=== PATIENT | male | born 2000 | race American Indian/Alaskan Native ===

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

== ENCOUNTER 2018-05-07 19:00 | Emergency (ER) | payer OTHER ==
[2018-05-07 19:22] VITALS: BP 105/77
--- NOTE | 2018-05-07 19:23 | Emergency Department Report ---
Blank Doc - Documentation Documentation: 17 y o male presents with middle to right localized chest pain x 2 month worsening cxr ekg wnl
--- NOTE | 2018-05-07 20:19 | XRay Report ---
FINAL REPORT PROCEDURE: XR CHEST ROUTINE 2V TECHNIQUE: PA and lateral chest radiographs were obtained. CPT 08537 HISTORY: Chest Pain COMPARISON: No prior studies are available for comparison. FINDINGS: Heart: Normal. Mediastinum/Vessels: Normal. Lungs/Pleural space: Normal. Bony thorax: No acute osseous abnormality. Other: IMPRESSION: Normal examination.
[2018-05-07 21:21] LABS: BUN/Creatinine Ratio 15; Blood Urea Nitrogen 15 mg/dL (9-20); Calcium 9.6 mg/dL (8.4-10.2); Hemolysis Index 10
[2018-05-07] MEDS ORDERED: IBUPROFEN PO ONE (22:10)
--- NOTE | 2018-05-07 22:12 | Emergency Department Report ---
ED General Adult HPI - General Chief complaint: Chest Pain Stated complaint: CHEST PAIN Time Seen by Provider: 05/07/18 19:21 Source: patient Mode of arrival: Ambulatory Limitations: No Limitations - History of Present Illness Initial comments: 17 year old Afro-[place] male presents to the emergency room for intermittent chest pain over the midsternal and right side for a couple of months. Patient is taking nothing for pain. He reports his every day couple times a day that lasts about 5 minutes and he reports that his ache. Patient reports nothing makes it worse he does admit to smoking and smoking marijuana. Past medical history of herpes. Not currently playing any sports but does do pushups often. -: month(s) (3) Location: chest Radiation: non-radiation Severity scale (0 -10): 5 Quality: aching Consistency: intermittent Improves with: none Worsens with: none Associated Symptoms: denies other symptoms Treatments Prior to Arrival: none - Related Data Previous Rx's Medication Instructions Recorded Last Taken Type Clindamycin [Clindamycin CAP] 300 mg PO Q8H #30 cap 11/21/16 Unknown Rx Ibuprofen [Motrin 600 MG tab] 600 mg PO Q8H PRN #20 tablet 11/21/16 Unknown Rx Mupirocin [Bactroban 2%] 1 applic TP TID #1 tube 11/21/16 Unknown Rx Acyclovir [Zovirax] 400 mg PO TID 5 Days #15 tablet 02/21/18 Unknown Rx Ibuprofen [Motrin 600 MG tab] 600 mg PO Q8H #15 tablet 05/07/18 Unknown Rx Allergies Allergy/AdvReac Type Severity Reaction Status Date / Time shellfish derived Allergy Anaphylaxis Verified 02/21/18 10:45 ED Review of Systems ROS: Stated complaint: CHEST PAIN Other details as noted in HPI Comment: All other systems reviewed and negative Constitutional: denies: chills, fever Cardiovascular: chest pain ED Past Medical Hx - Past Medical History Previous Medical History?: No - Surgical History Past Surgical History?: No - Social History Smoking Status: Current Some Day Smoker Substance Use Type: None - Medications Home Medications: Home Medications Medication Instructions Recorded Confirmed Last Taken Type Clindamycin [Clindamycin CAP] 300 mg PO Q8H #30 cap 11/21/16 Unknown Rx Ibuprofen [Motrin 600 MG tab] 600 mg PO Q8H PRN #20 tablet 11/21/16 Unknown Rx Mupirocin [Bactroban 2%] 1 applic TP TID #1 tube 11/21/16 Unknown Rx Acyclovir [Zovirax] 400 mg PO TID 5 Days #15 tablet 02/21/18 Unknown Rx Ibuprofen [Motrin 600 MG tab] 600 mg PO Q8H #15 tablet 05/07/18 Unknown Rx ED Physical Exam - General Limitations: No Limitations General appearance: alert, in no apparent distress, other (drinking a Coke in exam room) - Head Head exam: Present: atraumatic, normocephalic - Eye Eye exam: Present: normal appearance, EOMI - ENT ENT exam: Present: mucous membranes moist - Respiratory Respiratory exam: Present: normal lung sounds bilaterally, chest wall tenderness. Absent: respiratory distress, wheezes - Cardiovascular Cardiovascular Exam: Present: regular rate, normal rhythm, bradycardia. Absent: systolic murmur, diastolic murmur, rubs, gallop - GI/Abdominal GI/Abdominal exam: Present: soft, normal bowel sounds - Neurological Exam Neurological exam: Present: alert, oriented X3 - Psychiatric Psychiatric exam: Present: normal affect, normal mood - Skin Skin exam: Present: warm, dry, intact, normal color. Absent: rash ED Course Vital Signs 05/07/18 05/07/18 19:20 22:18 Temperature 99.1 F Pulse Rate 62 Respiratory 18 20 Rate Blood Pressure 105/77 O2 Sat by Pulse 98 Oximetry ED Medical Decision Making - Lab Data Result diagrams: 05/07/18 20:23 Laboratory Results - last 72 hr 05/07/18 20:23 Sodium 142 Potassium 4.5 Chloride 101.6 Carbon Dioxide 34 H Anion Gap 11 BUN 15 Creatinine 1.0 Estimated GFR > 60 BUN/Creatinine Ratio 15 Glucose 88 Calcium 9.6 Troponin T < 0.010 - Radiology Data Radiology results: report reviewed Patient: SEAN BENZ MR#: [id number] : 2000 Acct:[id number] Age/Sex: 17 / M ADM Date: 05/07/18 Loc: ED Attending Dr: Ordering Physician: TAINA RAMÍREZ Date of Service: 05/07/18 Procedure(s): XR chest routine 2V Accession Number(s): [id number] cc: TAINA RAMÍREZ Fluoro Time In Minutes: FINAL REPORT PROCEDURE: XR CHEST ROUTINE 2V TECHNIQUE: PA and lateral chest radiographs were obtained. CPT 07125 HISTORY: Chest Pain COMPARISON: No prior studies are available for comparison. FINDINGS: Heart: Normal. Mediastinum/Vessels: Normal. Lungs/Pleural space: Normal. Bony thorax: No acute osseous abnormality. Other: IMPRESSION: Normal examination. Transcribed By: [facility] [place] Dictated By: SHON LAMA Electronically Authenticated By: SHON LAMA Signed Date/Time: 05/07/182018 DD/ 17 TD/TT: 05/07/182017 - Medical Decision Making Patient has been evaluated by this provider in fast track. Ibuprofen given for pain management Chest x-ray is normal examination EKG shows bradycardic otherwise normal Negative troponin 1. Critical care attestation.: If time is entered above; I have spent that time in minutes in the direct care of this critically ill patient, excluding procedure time. ED Disposition Clinical Impression: Tenderness of chest wall Disposition: DC-01 TO HOME OR SELFCARE Is pt being admited?: No Does the pt Need Aspirin: No Condition: Stable Instructions: Chest Pain (ED), Costochondritis (ED) Additional Instructions: Please take pain medication as needed. Please stop smoking cigarettes and marijuana. Please take medication with food. Follow up with her primary care provider Christina bocanegra below. Convenience. Prescriptions: Ibuprofen [Motrin 600 MG tab] 600 mg PO Q8H #15 tablet Referrals: JOSUE WINCHESTER MD [Primary Care Provider] - 3-5 Days Forms: Accompanied Note, Work/School Release Form(ED)
== END 2018-05-08 01:03 | disposition home or self-care (01) ==
LOC: ED 19:00
DX: R07.89 Other chest pain (principal); F17.200 Nicotine dependence, unspecified, uncomplicated; F12.10 Cannabis abuse, uncomplicated; Z91.013 Allergy to seafood
CPT/HCPCS: 36415; 71046; 80048; 84484; 93005; 93010

== ENCOUNTER 2019-04-15 15:02 | Emergency (ER) | payer SELFPAY ==
[2019-04-15] MEDS ORDERED: dexAMETHasone 4 MG/ML VIAL IV ONE (15:03)
[2019-04-15] MEDS ORDERED: EPINEPHrine/PF (1:1,000) 1 MG/1 ML INJ SUB-Q ONE (15:04)
[2019-04-15] MEDS ORDERED: diphenhydrAMINE 50 MG/ML VIAL IV STA (15:05)
[2019-04-15] MEDS ORDERED: FAMOTIDINE 20 MG/2 ML INJ IV ONE ×3 (15:11→15:27)
[2019-04-15] MEDS ORDERED: methylPREDNISolone Sod Succinate 125 MG/2 ML INJ ONE (15:11)
--- NOTE | 2019-04-15 15:12 | Event Note ---
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 This initial assessment/diagnostic orders/clinical plan/treatment(s) is/are subject to change based on patients health status, clinical progression and re- assessment by fellow clinical providers in the ED. Further treatment and workup at subsequent clinical providers discretion. Patient/guardian urged not to elope from the ED as their condition may be serious if not clinically assessed and managed. Initial orders include:
[2019-04-15] MEDS ORDERED: IPRATROPIUM/ALBUTEROL SULFATE 3 ML AMPUL.NEB IH ONE (15:24)
[2019-04-15 15:25] VITALS: BP 134/92
[2019-04-15] MEDS ORDERED: methylPREDNISolone Sod Succinate 125 MG/2 ML INJ IV ONE (15:27)
[2019-04-15] MEDS ORDERED: EPINEPHrine/PF (1:1,000) 1 MG/1 ML INJ IM ONE (15:27)
[2019-04-15] MEDS ORDERED: ALBUTEROL 2.5 MG/3 ML NEBU IH ONE (15:29)
[2019-04-15] MEDS ORDERED: SODIUM CHLORIDE 0.9% 1000 ML 1,000 ML IV ONE (15:29)
--- NOTE | 2019-04-15 15:29 | Emergency Department Report ---
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 Patient brought to the emergency room by his family for sudden onset of generalized body itching, facial swelling and difficulty breathing immediately after he started eating a seafood at home. Patient denied any difficulty in breathing or difficulty swallowing. MD Complaint: allergic reaction, hives, facial swelling -: Sudden, minutes(s) (40) Exposure: food (sea food) Symptoms: itching, facial swelling, lip swelling. denies: difficulty swallowing, difficulty breathing, orolingual swelling, hoarseness, syncopy, nausea Severity: moderate Treatment Prior to Arrival: none Previous Allergy History: prior ED visit(s) - Related Data Previous Rx's Medication Instructions Recorded Last Taken Type Clindamycin [Clindamycin CAP] 300 mg PO Q8H #30 cap 11/21/16 Unknown Rx Ibuprofen [Motrin 600 MG tab] 600 mg PO Q8H PRN #20 tablet 11/21/16 Unknown Rx Mupirocin [Bactroban 2%] 1 applic TP TID #1 tube 11/21/16 Unknown Rx Acyclovir [Zovirax] 400 mg PO TID 5 Days #15 tablet 02/21/18 Unknown Rx Ibuprofen [Motrin 600 MG tab] 600 mg PO Q8H #15 tablet 05/07/18 Unknown Rx Allergies Allergy/AdvReac Type Severity Reaction Status Date / Time shellfish derived Allergy Anaphylaxis Verified 02/21/18 10:45 ED Review of Systems ROS: Stated complaint: CIERA/ALLERGIC REACTION Other details as noted in HPI Comment: All other systems reviewed and negative Constitutional: denies: chills, fever Respiratory: shortness of breath, wheezing. denies: cough, SOB with exertion Cardiovascular: denies: chest pain Gastrointestinal: denies: abdominal pain ED Past Medical Hx - Past Medical History Previous Medical History?: No - Surgical History Past Surgical History?: No - Social History Smoking Status: Current Every Day Smoker - Medications Home Medications: Home Medications Medication Instructions Recorded Confirmed Last Taken Type Clindamycin [Clindamycin CAP] 300 mg PO Q8H #30 cap 08/28/17 Unknown Rx Ibuprofen [Motrin 600 MG tab] 600 mg PO Q8H PRN #20 tablet 11/21/16 Unknown Rx Mupirocin [Bactroban 2%] 1 applic TP TID #1 tube 11/21/16 Unknown Rx Acyclovir [Zovirax] 400 mg PO TID 5 Days #15 tablet 02/21/18 Unknown Rx Ibuprofen [Motrin 600 MG tab] 600 mg PO Q8H #15 tablet 05/07/18 Unknown Rx ED Physical Exam - General Limitations: No Limitations General appearance: alert, anxious - Head Head exam: Present: atraumatic, normocephalic, normal inspection - Eye Eye exam: Present: normal appearance - ENT ENT exam: Present: other (periorbital swelling, upper and lower lips swelling) - Respiratory Respiratory exam: Present: wheezes - Cardiovascular Cardiovascular Exam: Present: regular rate, normal rhythm, normal heart sounds - GI/Abdominal GI/Abdominal exam: Present: soft, normal bowel sounds. Absent: distended, tenderness, guarding, rebound, rigid, organomegaly, mass, bruit, pulsatile mass, hernia - Extremities Exam Extremities exam: Present: normal inspection, full ROM, normal capillary refill. Absent: tenderness, pedal edema, calf tenderness - Back Exam Back exam: Present: normal inspection, full ROM, rash noted. Absent: CVA tenderness (R), CVA tenderness (L), muscle spasm, paraspinal tenderness, vertebral tenderness - Neurological Exam Neurological exam: Present: alert, oriented X3, CN II-XII intact, normal gait, reflexes normal. Absent: motor sensory deficit - Skin Skin exam: Present: warm, intact, normal color ED Course Vital Signs 04/15/19 04/15/19 04/15/19 15:20 15:23 15:25 Pulse Rate 72 72 Pulse Rate [ Right Lower Lobe] Respiratory 16 16 16 Rate Respiratory Rate [Right Lower Lobe] Blood Pressure 134/92 Blood Pressure 134/92 [Left] O2 Sat by Pulse 99 99 99 Oximetry 04/15/19 15:31 Pulse Rate Pulse Rate [ 80 Right Lower Lobe] Respiratory Rate Respiratory 18 Rate [Right Lower Lobe] Blood Pressure Blood Pressure [Left] O2 Sat by Pulse Oximetry ED Medical Decision Making - Medical Decision Making Patient is 18 years old male with 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 Patient brought to the emergency room by his family for sudden onset of generalized body itching, facial swelling and difficulty breathing immediately after he started eating a seafood at home. Patient denied any difficulty in breathing or difficulty swallowing. Patient received epinephrine subcutaneous 0.3 mg, Benadryl 50 mg, Pepcid 40 mg and Solu-Medrol 125 mg IV. Patient also received normal saline and albuterol 5 mg nebulized. Patient stated that he is feeling much better. Patient is denying any difficulty swallowing or difficulty breathing. Patient given prescription for Medrol pack, Pepcid, Benadryl and EpiPen. Patient advised to follow up with his primary care physician in the next 2-3 days and to return to the ER if he develop any new symptoms or if his symptoms get worse. Critical Care Time: Yes Critical care time in (mins) excluding proc time.: 30 Critical care attestation.: If time is entered above; I have spent that time in minutes in the direct care of this critically ill patient, excluding procedure time. ED Disposition Clinical Impression: Acute allergic reaction Disposition: DC-01 TO HOME OR SELFCARE Is pt being admited?: No Condition: Stable Instructions: Food Allergy (ED) Referrals: [facility] [Provider Group] - 3-5 Days
== END 2019-04-15 18:52 | disposition home or self-care (01) ==
LOC: ED 15:02
DX: T78.1XXA Other adverse food reactions, not elsewhere classified, initial encounter (principal); F17.200 Nicotine dependence, unspecified, uncomplicated; Z79.899 Other long term (current) drug therapy; Z91.013 Allergy to seafood; X58.XXXA Exposure to other specified factors, initial encounter; Y93.89 Activity, other specified; Y92.89 Other specified places as the place of occurrence of the external cause; Y99.8 Other external cause status
CPT/HCPCS: 94640; 96372; 96374; 96375; 99283; J0171; J1200; J2930; J7030; 94644; J1100

== ENCOUNTER 2021-03-18 13:54 | Emergency (ER) | payer OTHER ==
--- NOTE | 2021-03-18 17:42 | Emergency Department Report ---
- General Chief complaint: Extremity Problem,Nontraumatic Stated complaint: INFECTED THUMB Time Seen by Provider: 03/18/21 15:21 Source: patient Mode of arrival: Ambulatory Limitations: No Limitations - History of Present Illness Initial comments: 20-year-old -Martiniquais male presents to the emergency room complaining of left thumb swelling and tenderness x3 days. Patient states that he does bite his nails. States his pain with swelling when you touch it. He denies any other injury. He has no known drug allergies. Currently takes no meds on a daily basis. MD complaint: abscess/boil Onset/Timin -: days(s) Tetanus Up to Date: yes Location: L hand (Thumb) Severity: moderate Quality: stabbing Consistency: constant Improves with: none Worsens with: palpation Context: none Associated symptoms: denies other symptoms - Related Data Previous Rx's Medication Instructions Recorded Last Taken Type Clindamycin [Clindamycin CAP] 300 mg PO Q8H #30 cap 11/21/16 Unknown Rx Ibuprofen [Motrin 600 MG tab] 600 mg PO Q8H PRN #20 tablet 11/21/16 Unknown Rx Mupirocin [Bactroban 2%] 1 applic TP TID #1 tube 11/21/16 Unknown Rx Acyclovir [Zovirax] 400 mg PO TID 5 Days #15 tablet 02/21/18 Unknown Rx EPINEPHrine [Epipen] 0.3 mg IJ ONCE #1 auto.injct 04/15/19 Unknown Rx Famotidine [Pepcid] 40 mg PO QHS #5 tablet 04/15/19 Unknown Rx Prednisone [predniSONE 10 mg 10 mg PO .TAPER #1 tab.ds.pk 04/15/19 Unknown Rx (6-Day Pack, 21 Tabs)] diphenhydrAMINE [Benadryl CAP] 25 mg PO Q8HR PRN #20 capsule 04/15/19 Unknown Rx Ibuprofen [Motrin 600 MG tab] 600 mg PO Q8H #15 tablet 03/18/21 Unknown Rx cephALEXin [Keflex] 500 mg PO Q12HR 7 Days #14 cap 03/18/21 Unknown Rx Allergies Allergy/AdvReac Type Severity Reaction Status Date / Time shellfish derived Allergy Anaphylaxis Verified 03/18/21 14:18 Abscess Boil HPI - HPI Chief Complaint: Extremity Problem,Nontraumatic Stated Complaint: INFECTED THUMB Time Seen by Provider: 03/18/21 15:21 Home Medications: Previous Rx's Medication Instructions Recorded Last Taken Type Clindamycin [Clindamycin CAP] 300 mg PO Q8H #30 cap 11/21/16 Unknown Rx Ibuprofen [Motrin 600 MG tab] 600 mg PO Q8H PRN #20 tablet 11/21/16 Unknown Rx Mupirocin [Bactroban 2%] 1 applic TP TID #1 tube 11/21/16 Unknown Rx Acyclovir [Zovirax] 400 mg PO TID 5 Days #15 tablet 02/21/18 Unknown Rx EPINEPHrine [Epipen] 0.3 mg IJ ONCE #1 auto.injct 04/15/19 Unknown Rx Famotidine [Pepcid] 40 mg PO QHS #5 tablet 04/15/19 Unknown Rx Prednisone [predniSONE 10 mg 10 mg PO .TAPER #1 tab.ds.pk 04/15/19 Unknown Rx (6-Day Pack, 21 Tabs)] diphenhydrAMINE [Benadryl CAP] 25 mg PO Q8HR PRN #20 capsule 04/15/19 Unknown Rx Ibuprofen [Motrin 600 MG tab] 600 mg PO Q8H #15 tablet 03/18/21 Unknown Rx cephALEXin [Keflex] 500 mg PO Q12HR 7 Days #14 cap 03/18/21 Unknown Rx Allergies/Adverse Reactions: Allergies Allergy/AdvReac Type Severity Reaction Status Date / Time shellfish derived Allergy Anaphylaxis Verified 03/18/21 14:18 ED Review of Systems ROS: Stated complaint: INFECTED THUMB Other details as noted in HPI ED Past Medical Hx - Social History Smoking Status: Current Every Day Smoker - Medications Home Medications: Home Medications Medication Instructions Recorded Confirmed Last Taken Type Clindamycin [Clindamycin CAP] 300 mg PO Q8H #30 cap 11/21/16 Unknown Rx Ibuprofen [Motrin 600 MG tab] 600 mg PO Q8H PRN #20 tablet 11/21/16 Unknown Rx Mupirocin [Bactroban 2%] 1 applic TP TID #1 tube 11/21/16 Unknown Rx Acyclovir [Zovirax] 400 mg PO TID 5 Days #15 tablet 02/21/18 Unknown Rx EPINEPHrine [Epipen] 0.3 mg IJ ONCE #1 auto.injct 04/15/19 Unknown Rx Famotidine [Pepcid] 40 mg PO QHS #5 tablet 04/15/19 Unknown Rx Prednisone [predniSONE 10 mg 10 mg PO .TAPER #1 tab.ds.pk 04/15/19 Unknown Rx (6-Day Pack, 21 Tabs)] diphenhydrAMINE [Benadryl CAP] 25 mg PO Q8HR PRN #20 capsule 04/15/19 Unknown Rx Ibuprofen [Motrin 600 MG tab] 600 mg PO Q8H #15 tablet 03/18/21 Unknown Rx cephALEXin [Keflex] 500 mg PO Q12HR 7 Days #14 cap 03/18/21 Unknown Rx ED Physical Exam - General Limitations: No Limitations General appearance: alert, in no apparent distress - Head Head exam: Present: atraumatic, normocephalic - Eye Eye exam: Present: normal appearance - ENT ENT exam: Present: normal external ear exam - Neck Neck exam: Present: normal inspection, full ROM - Respiratory Respiratory exam: Absent: respiratory distress, accessory muscle use - Cardiovascular Cardiovascular Exam: Present: regular rate - Expanded Upper Extremity Exam Left Shoulder Exam: Present: normal inspection, full ROM Upper Arm exam: Present: normal inspection, full ROM Elbow exam: Present: normal inspection, full ROM Hand Wrist exam: Present: tenderness, swelling (Left distal thumb medial aspect) Vascular: Present: normal capillary refill - Back Exam Back exam: Present: normal inspection - Neurological Exam Neurological exam: Present: alert, oriented X3, normal gait - Psychiatric Psychiatric exam: Present: normal affect, normal mood ED Course Vital Signs 03/18/21 14:15 Temperature 98.1 F Pulse Rate 70 Respiratory 18 Rate Blood Pressure 110/77 [Left] O2 Sat by Pulse 100 Oximetry ED Medical Decision Making - Medical Decision Making 20-year-old -Martiniquais male presents to the emergency room complaining of left thumb swelling and tenderness x3 days. Patient states that he does bite his nails. States his pain with swelling when you touch it. He denies any other injury. He has no known drug allergies. Currently takes no meds on a daily basis. Patient was treated for paronychia with Keflex. Critical care attestation.: If time is entered above; I have spent that time in minutes in the direct care of this critically ill patient, excluding procedure time. ED Disposition Clinical Impression: Paronychia of finger Disposition: HOME / SELF CARE / HOMELESS Is pt being admited?: No Does the pt Need Aspirin: No Condition: Stable Instructions: Paronychia, [id number] Additional Instructions: Stop biting your nails as this is what caused paronychia and infections. Complete antibiotics pain medication as needed. Be sure to increase your water intake while taking medication. Prescriptions: cephALEXin [Keflex] 500 mg PO Q12HR 7 Days #14 cap Ibuprofen [Motrin 600 MG tab] 600 mg PO Q8H #15 tablet Referrals: PRIMARY CARE, [Primary Care Provider] - 3-5 Days Forms: Work/School Release Form(ED) Time of Disposition: 17:41
[2021-03-18 18:10] VITALS: BP 112/72
== END 2021-03-18 18:11 | disposition home or self-care (01) ==
LOC: ED 13:54
DX: L03.012 Cellulitis of left finger (principal); F17.200 Nicotine dependence, unspecified, uncomplicated; Z79.899 Other long term (current) drug therapy
CPT/HCPCS: 99282